=== PATIENT | female | born 1980 ===

== ENCOUNTER → 2016-07-01 | Outpatient (CLI) | payer OTHER ==
[~2016-07-01] MED LIST: CINNAMON PO; FOLIC ACID PO; NAPR1TAB9 PO; OMEG10007 PO; VITAMIN D PO; VITAMIN E PO
[2016-07-01 16:53] LABS: PREG INTERNAL NEGATIVE QC NEG CLEAR BACKGROUND; PREG INTERNAL POSITIVE QC POS CONTROL LINE
[2016-07-04 14:03] LABS: CHLAMYDIA TRACH RNA*** NOT DETECTED (NOT DETECTED); GC (NEIS GONORRHOEAE)RNA** NOT DETECTED (NOT DETECTED)
== END | disposition home or self-care (01) ==
LOC: C.LAB1850 15:13
PROVIDERS: ATTEND Obstetrics & Gynecology
DX: N93.9 Abnormal uterine and vaginal bleeding, unspecified (principal)

== ENCOUNTER → 2016-07-01 | Outpatient (CLI) | payer OTHER | END | disposition home or self-care (01) | LOC: C.PAPS 07:52 | PROVIDERS: ATTEND Obstetrics & Gynecology | DX: Z12.4 Encounter for screening for malignant neoplasm of cervix (principal) ==

== ENCOUNTER → 2016-09-09 | Day surgery (SDC) | payer OTHER ==
[2016-08-24 10:10] LABS: BASO % 0.4 %; BASO ABS # 0.03 K/uL (0-0.2); COMPLETE YES; EOS % 2.1 %; HEMATOCRIT 37.2 % (37-47); IG% 0.1 %; LYMPH % 34.7 %; LYMPH ABS # 2.44 K/uL (1.2-3.4); MEAN CELL VOLUME 79.1 fL (80-100); MEAN CORPUSCULAR HGB CONC 34.1 g/dl (32-36); MEAN PLATELET VOLUME 9.1 fL (7.4-10.4); NEUT % 54.7 %; PLATELET COUNT 247 K/uL (130-400); WHITE BLOOD COUNT 7.04 K/uL (4.8-10.8)
--- NOTE | 2016-08-24 18:41 | HISTORY & PHYSICAL EXAMINATION ---
DATE OF ADMISSION: 09/09/2016 PREOPERATIVE HISTORY AND PHYSICAL ADMITTING DIAGNOSES: 1. Dysfunctional uterine bleeding. 2. Probable endometrial polyp. ADMISSION HISTORY: The patient is a 36-year-old 0, last menstrual period of 10 August who is admitted for diagnostic hysteroscopy, D\T\C for dysfunctional uterine bleeding with probable endometrial polyp. The patient presented to our office in June for evaluation of dysfunctional uterine bleeding. She had discontinued oral contraceptive pills in the Fall of 2015, beginning in April she began to have irregular vaginal bleeding. The patient was seen in the office and had an evaluation which included an ultrasound and office SIS. These both showed what appeared to be an endometrial polyp. Treatment options were discussed and the patient has been admitted for the above-listed procedures. OB: Nulligravida. CLIENT SUPPORT CONSULTANT: As above. MEDICAL: None. SURGICAL: Nose surgery, hernia repair. ALLERGIES: No known drug allergies. SOCIAL HISTORY: No smoking. FAMILY HISTORY: Noncontributory. REVIEW OF SYSTEMS: As per HPI. ADMISSION PHYSICAL EXAMINATION: GENERAL: Shows a pleasant female in no acute distress. VITAL SIGNS: Blood pressure 100/64, height of 5 feet 1 inches and weight of 120 pounds. HEENT EXAMINATION: Unremarkable. NECK: Supple. LUNGS: Clear. HEART: With a regular rhythm and rate. ABDOMEN: Soft, nontender. PELVIC: Shows normal external genitalia, vaginal wall pink and rugated. Cervical os is nulliparous and closed. Bimanual examination shows an anterior mobile uterus. Adnexa show no palpable masses. RECTAL: Confirmatory. EXTREMITIES: Shows no deep calf tenderness. NEUROLOGIC: Grossly intact. IMPRESSION: A 36-year-old 0 for diagnostic hysteroscopy, dilatation and curettage for dysfunctional uterine bleeding with probable endometrial polyp. PLAN: The risks, benefits and alternatives to the surgery have been discussed. While the benefits will be evaluation of the endometrial lining and removal of any endometrial polyps, the risks of bleeding, infection, inadvertent perforation of the uterus or failure to diagnose and/or treat the problem. The patient understands this. The permit has been signed and she wishes to proceed.
[2016-08-27 08:35] VITALS: Ht 154.9 cm; Wt 54.1 kg
[~2016-09-09] VITALS: Ht 154.9 cm; Wt 54.1 kg
[~2016-09-09] MED LIST changes: +ATROPINE SULFATE 0.1 MG/ML 5ML SYR IV PRN; +DEXAMETHASONE SOD INJ 4 MG/ML VIAL IV PRN; +DEXAMETHASONE SOD INJ 4 MG/ML VIAL ONE; +EpHEDrine SULFATE INJ 50 MG/ML AMP IV PRN; +FENTANYL CITRATE INJ 50 MCG/1 ML 2 ML VIAL IV PRN; +FENTANYL CITRATE INJ 50 MCG/1 ML 2 ML VIAL ONE; +IBUPROFEN 600 MG TAB PO PRN; +KETOROLAC TROMETHAMINE 30 MG/ML VIAL IV. PRN; +KETOROLAC TROMETHAMINE 30 MG/ML VIAL ONE; +LABETALOL HCL IV 5 MG/ML 20ML IV PRN; +LACTATED RINGER'S 1000ML 1,000 ML IV SCH; +LIDOCAINE HCL 2% 2 ML VIAL (20MG/ML) ONE; +METOCLOPRAMIDE HCL INJ 5 MG/ML 2 ML VIAL IV PRN; +MIDAZOLAM HCL 1 MG/ML 2ML VIAL ONE; +MoRPHine SULFATE 10 MG/ML CARP/VIAL IV PRN; +ONDANSETRON INJ 2 MG/ML 2 ML VIAL IV PRN; +ONDANSETRON INJ 2 MG/ML 2 ML VIAL ONE; +PHENYLEPHRINE 100MCG/ML 5ML SYR IV PRN; +PROPOFOL IV EMULSION 10 MG/ML 20 ML VIAL IV ONE; +SODIUM CHLORIDE 0.9% 1000ML 1,000 ML IV SCH
--- NOTE | 2016-09-09 08:53 | History & Physical Bridge - SC ---
H&P Re-Evaluation Bridge Note: I have examined the patient, reviewed the History & Physical and in the interval since the performance of the History & Physical I have noted the following changes of clinical significance: No changes noted
--- NOTE | 2016-09-09 09:36 | [facility] Post Operative Brief Note ---
Immediate Operative Summary Operative Date Sep 09, 2016. Pre-Operative Diagnosis Abnormal Uterine Bleeding Post-Operative Diagnosis same Procedure(s) Performed 1) Dx Hysteroscopy 2) Dilatation And Curettage, Surgeon Dr. Lam Lake Flask Cleaner Surgeon(s) 0 Estimated Blood Loss minimal Findings Visualization of EL hysteroscopically showed no evidence of a polyp, D&C performed, repeat hysteroscope showed denuded endometrium, no polyp, fluid deficit 45cc Fluids (cc crystalloids) 600 Specimens A. Endometrial Curettings Drains None Anesthesia General Complication(s) None Disposition Recovery Room / PACU
--- NOTE | 2016-09-09 09:37 | Discharge Instructions-SurgCtr ---
Discharge Instructions Date of Service Sep 09, 2016. Visit Reason for Visit: Abnormal Uterine Bleeding Discharge Discharge Diagnosis / Problem: same Discharge Goals Goal(s): Therapeutic intervention Activity Recommendations Activity Limitations: as noted below Anesthesia . Post Anesthesia Instructions: If you have had General Anesthesia or IV Sedation: * Do not drive today. * Resume driving when surgeon permits. * Do not make important decisions or sign legal documents today. * Call surgeon for: 1. Temperature elevations greater than 101 degrees F. 2. Uncontrollable pain. 3. Excessive bleeding. 4. Persistent nausea and vomiting. 5. Medication intolerance (nausea, vomiting or rash). * For nausea and vomiting use only clear liquids such as: tea, soda, bouillon until nausea subsides, then gradually increase diet as tolerated. * If you have any concerns or questions, call your surgeon's office. If physician is unavailable and it is an emergency, call 911 or go to the nearest emergency room. . Instructions / Follow-Up Instructions / Follow-Up ACTIVITY RECOMMENDATIONS: * Avoid tampons, douching, hot tubs, pools, and intercourse until bleeding has stopped. * May shower as usual. * No strenuous activity for 24-48 hours. After 24-48 hours, you may do anything you feel like doing (driving and sports are okay). SPECIAL CARE INSTRUCTIONS: Special Diet: * Mild nausea may occur in the immediate post-operative period. * Take clear liquids such as tea, cola or bouillon until all nausea has subsided; you may then resume your normal diet. Special Care: * Light bleeding and vaginal spotting can last from a few days to 3-4 weeks. Call your doctor if bleeding becomes heavier than the heaviest part of your period. * Check your temperature twice a day for one week. If it goes above 100.4 degrees Fahrenheit (38.0 Celsius), notify your doctor. * Call your doctor's office for an appointment for 6 weeks after your surgery. FOLLOW-UP VISIT: Call your doctor's office for an appointment for 6 weeks after your surgery. Diet Recommendations Home Diet: resume previous diet Procedures Procedures Performed: 1) Dx Hysteroscopy 2) Dilatation And Curettage, Pending Studies Studies pending at discharge: yes List of pending studies: Pathology from procedure Medical Emergencies . Who to Call and When: Medical Emergencies: If at any time you feel your situation is an emergency, please call 911 immediately. . Non-Emergent Contact Non-Emergency issues call your: Rpg Developer Call Non-Emergent contact if: temperature is above 100.5 . . "Provider Documentation" section prepared by Justo Lake.
--- NOTE | 2016-09-09 09:39 | Medical Student: [facility] ---
Immediate Operative Summary Operative Date Sep 09, 2016. Pre-Operative Diagnosis Dysfunction Uterine Bleeding; Abnormal Pelvic Ultrasound Post-Operative Diagnosis Same Procedure(s) Performed Dilation and Curretage; Hysteroscopy Surgeon Dr. Justo Lake Needle Punch Operator Surgeon(s) none Estimated Blood Loss minimal Findings Hysteroscopy showed normal endometrial lining with no evidence of polyp Repeat hysteroscopy after curettage showed thin endometrium, no evidence of polyp 55cc deficit from hysteroscopy Fluids (cc crystalloids) 400 cc Lactated ringers Specimens Endometrial Curettings Drains none Anesthesia general with laryngeal mask airway Complication(s) None Disposition Recovery Room / PACU
--- NOTE | 2016-09-09 09:52 | OPERATIVE REPORT ---
DATE OF OPERATION: 09/09/2016 PREOPERATIVE DIAGNOSES: 1. Dysfunctional uterine bleeding. 2. Probable endometrial polyp. POSTOPERATIVE DIAGNOSES: Same. PROCEDURES PERFORMED: 1. Diagnostic hysteroscopy. 2. D\T\C. SURGEON: Dr. Justo Lake. ANESTHESIA: General. FINDINGS: Hysteroscopic examination of the endometrial lining showed no evidence of a distinct endometrial polyp. Curettage of the endometrial lining performed and sent for pathological evaluation. Repeat hysteroscopy showed a denuded endometrium. Fluid deficit for the procedure 45 mL. PROCEDURE IN DETAIL: The patient was taken to the operating room and after general anesthesia, was placed in dorsal lithotomy position and draped and prepped in the usual fashion. Bladder was drained of any residual urine. Single tooth tenaculum was used to grasp the anterior lip of the cervix. Cervical os was dilated with Esquivel dilators to a Esquivel #23. The operative MyoSure hysteroscope was inserted into the endometrial cavity with description as above. No distinct polyp could be appreciated. Hysteroscope was removed and a medium horseshoe curet was introduced into the endometrial cavity and all 4 quadrants were curettaged and sent for pathological evaluation. Repeat examination showed a denuded endometrium hysteroscopically with again no evidence of a polyp. Fluid deficit for the procedure 45 mL. The patient was taken out of dorsal lithotomy and to recovery room in satisfactory condition. I attest to the content of the Intraoperative Record and any orders documented therein. Any exceptio ns are noted below.
[2016-09-09 10:15] VITALS: TEMP 36.6
--- NOTE | 2016-09-09 10:32 | Anesthesia Progress Nt - [facility] ---
Anesthesia Post Op Note Date & Time Sep 09, 2016 at 10:33 Vital Signs Pain Intensity: 0 Vital Signs Past 12 Hours Date Time Temp Pulse Resp B/P Pulse Ox O2 Delivery O2 Flow Rate FiO2 09/09/16 10:15 36.6 57 16 118/69 100 Room Air 09/09/16 10:11 64 13 100 09/09/16 10:11 66 13 09/09/16 10:10 99/67 09/09/16 10:06 65 14 09/09/16 10:06 62 14 99 09/09/16 10:06 36.8 63 16 99/67 100 Room Air 09/09/16 10:05 97/61 09/09/16 10:01 56 21 09/09/16 10:01 56 21 100 09/09/16 10:00 93/58 09/09/16 09:55 56 15 94/61 100 09/09/16 09:55 56 15 09/09/16 09:50 54 16 09/09/16 09:50 53 16 99/59 100 09/09/16 09:50 53 16 99/59 100 09/09/16 09:50 54 16 09/09/16 09:45 53 15 100/69 100 09/09/16 09:45 53 15 100/69 100 09/09/16 09:45 53 15 09/09/16 09:45 53 15 09/09/16 09:40 53 16 09/09/16 09:40 53 16 109/64 100 09/09/16 09:40 53 16 109/64 100 09/09/16 09:40 36.2 53 16 107/64 100 Diffusion Mask 6 09/09/16 09:40 53 16 09/09/16 07:45 36.8 71 16 107/69 100 Room Air Notes Mental Status: alert / awake / arousable, participated in evaluation Pt Amnestic to Procedure: Yes Nausea / Vomiting: adequately controlled Pain: adequately controlled Airway Patency, RR, SpO2: stable & adequate BP & HR: stable & adequate Hydration State: stable & adequate Anesthetic Complications: no major complications apparent
[2016-09-09 10:42] VITALS: BP 110/71; PULSE 65; O2SAT 100
== END | disposition home or self-care (01) ==
LOC: X.SURG 07:37
PROVIDERS: ATTEND Obstetrics & Gynecology
DX: N85.00 Endometrial hyperplasia, unspecified (principal); N84.0 Polyp of corpus uteri; N93.8 Other specified abnormal uterine and vaginal bleeding